=== PATIENT | male | born 1990 | race Caucasian/White ===

== ENCOUNTER 2016-12-07 00:24 | Emergency (ER) | payer OTHER ==
[~2016-12-07] VITALS: Ht 190.5 cm; Wt 83.8 kg
[2016-12-07 00:25] VITALS: BP 114/77
== END 2016-12-07 02:14 | disposition left against medical advice (07) ==
LOC: ED 02:08
DX: Z53.21 Procedure and treatment not carried out due to patient leaving prior to being seen by health care provider (principal)

== ENCOUNTER 2017-02-16 21:09 | Emergency (ER) | payer OTHER ==
[~2017-02-16] VITALS: Ht 190.5 cm; Wt 75.0 kg
[2017-02-16 21:28] VITALS: BP 121/73
== END 2017-02-16 21:55 | disposition left against medical advice (07) ==
LOC: MERGE 21:49 → ED 21:49
DX: Z00.00 Encounter for general adult medical examination without abnormal findings (principal); R10.9 Unspecified abdominal pain
CPT/HCPCS: 99281

== ENCOUNTER 2017-05-03 20:07 | Emergency (ER) | payer MEDICAID, OTHER ==
[~2017-05-03] VITALS: Ht 190.5 cm; Wt 80.0 kg
[2017-05-03] MEDS ORDERED: LIDOCAINE-MPF 1%, 5ML INFIL ONE (20:30)
[2017-05-03] MEDS ORDERED: CEFTRIAXONE 1,000 MG ONE (20:46)
[2017-05-03] MEDS ORDERED: MORPHINE SULFATE 4 MG/ML, 1ML ONE (20:47)
[2017-05-03] MEDS ORDERED: CEFTRIAXONE 1,000 MG IM ONE (21:00)
[2017-05-03] MEDS ORDERED: morphine SULFATE 10 MG/ML, 1ML IVPush ONE (21:00)
[2017-05-03 21:39] VITALS: BP 131/80
== END 2017-05-03 21:41 | disposition home or self-care (01) ==
LOC: ED 21:34
DX: L03.113 Cellulitis of right upper limb (principal); L02.414 Cutaneous abscess of left upper limb; F11.20 Opioid dependence, uncomplicated
CPT/HCPCS: 10061; 96372; 96374; 99284; J0696; J2270

== ENCOUNTER 2017-10-13 23:47 | Emergency (ER) | payer MEDICAID ==
[~2017-10-13] VITALS: Ht 190.5 cm; Wt 80.0 kg
[2017-10-14] MEDS ORDERED: CEFAZOLIN 1,000 MG ONE (00:11)
[2017-10-14] MEDS ORDERED: KETOROLAC 30 MG/1 ML ONE (00:11)
[2017-10-14] MEDS ORDERED: KETOROLAC 60 MG/2 ML IM ONE (00:30)
[2017-10-14] MEDS ORDERED: CEFAZOLIN 1,000 MG IM ONE (00:30)
[2017-10-14 00:54] VITALS: BP 117/72
== END 2017-10-14 00:57 | disposition home or self-care (01) ==
LOC: ED 10-14 00:55
DX: L03.115 Cellulitis of right lower limb (principal); F41.1 Generalized anxiety disorder
CPT/HCPCS: 73564; 96372; 99284; J0690; J1885